=== PATIENT | female | born 1985 | race African-American/Black ===

== ENCOUNTER 2017-05-12 15:53 | Observation (INO) | payer MEDICAID ==
[~2017-05-12] VITALS: Ht 172.7 cm; Wt 104.8 kg
== END 2017-05-12 19:05 | disposition home or self-care (01) ==
LOC: L&D 15:53
PROVIDERS: ADMIT Obstetrics & Gynecology; ATTEND Obstetrics & Gynecology
DX: O42.013 Preterm premature rupture of membranes, onset of labor within 24 hours of rupture, third trimester (principal); Z3A.38 38 weeks gestation of pregnancy
CPT/HCPCS: 76815; 76818; 99281; G0378

== ENCOUNTER 2019-05-21 21:55 | Emergency (ER) | payer MEDICAID ==
[~2019-05-21] VITALS: Ht 172.7 cm; Wt 116.0 kg
[2019-05-21 22:13] VITALS: BP 159/88
== END 2019-05-22 | disposition left against medical advice (07) ==
LOC: ER 21:55
DX: Z53.21 Procedure and treatment not carried out due to patient leaving prior to being seen by health care provider (principal)

== ENCOUNTER 2019-06-19 09:36 | Emergency (ER) | payer MEDICAID ==
[~2019-06-19] VITALS: Ht 170.2 cm; Wt 104.0 kg
[2019-06-19 10:09] VITALS: BP 136/89
[2019-06-19] MEDS ORDERED: IBUPROFEN 600MG TABLET PO ONE (11:15)
[2019-06-19 12:02] LABS: CLARITY URINE CLEAR (CLEAR); COLOR URINE YELLOW (YELLOW); KETONES URINE NEGATIVE (NEGATIVE); LEUKOCYTE ESTERASE URINE NEGATIVE (NEGATIVE); NITRITE URINE NEGATIVE (NEGATIVE); OCCULT BLOOD URINE NEGATIVE (NEGATIVE); PH URINE 5.5 (4.5-8.0); PROTEIN URINE NEGATIVE (NEGATIVE); SPECIFIC GRAVITY URINE 1.019 (1.005-1.030); UROBILINOGEN URINE 0.2 E.U./dL (0.2-1.0)
[2019-06-19] MEDS ORDERED: MECLIZINE 25MG TABLET PO ONE (12:30)
== END 2019-06-19 13:24 | disposition home or self-care (01) ==
LOC: ER 09:36
DX: R51 Headache (principal); R30.0 Dysuria; R10.9 Unspecified abdominal pain; I10 Essential (primary) hypertension; Z86.59 Personal history of other mental and behavioral disorders
CPT/HCPCS: 81003; 81025; 99283

== ENCOUNTER 2019-07-20 13:11 | Emergency (ER) | payer MEDICAID, OTHER ==
[~2019-07-20] VITALS: Ht 172.7 cm; Wt 102.6 kg
[~2019-07-20 13:11] MED LIST: LIDOCAINE HCL/PF 1% 2ML VIAL ONE
[2019-07-20 15:13] LABS: CHLORIDE 108 mEq/L (98-107)
[2019-07-20 15:15] LABS: BASOPHILS % 0.4 % (0.0-2.0); EOSINOPHILS % 1.3 % (0.0-5.0); HEMATOCRIT. 39.8 % (36.0-48.0); HEMOGLOBIN. 13.9 g/dL (12.0-16.0); LYMPHOCYTES % 37.7 % (20.0-50.0); MEAN CORPUSCULAR HEMOGLOBIN 30.8 pg (28.0-32.0); MEAN CORPUSCULAR VOLUME 88.3 fL (81.0-99.0); MONOCYTES % 5.8 % (2.0-8.0); NEUTROPHILS % 54.8 % (40.0-76.0); PLATELET 241 x1000/uL (130-400); RED CELL DISTRIBUTION WIDTH 14.4 % (11.6-14.6)
[2019-07-20 15:18] LABS: ETHANOL BLOOD < 10 mg/dL
[2019-07-20 15:42] LABS: CLARITY URINE CLEAR (CLEAR); COLOR URINE YELLOW (YELLOW); KETONES URINE NEGATIVE (NEGATIVE); LEUKOCYTE ESTERASE URINE TRACE (NEGATIVE); NITRITE URINE NEGATIVE (NEGATIVE); OCCULT BLOOD URINE NEGATIVE (NEGATIVE); PROTEIN URINE NEGATIVE (NEGATIVE); SPECIFIC GRAVITY URINE 1.006 (1.005-1.030); UROBILINOGEN URINE 0.2 E.U./dL (0.2-1.0)
[2019-07-20] MEDS ORDERED: KETOROLAC 30MG/ML VIAL IV ONE (15:45)
[2019-07-20 15:47] LABS: BG BASE EXCESS -0.9 mmol/L (-2.0-2.0); BG CARBOXYHEMOGLOBIN 0.6 % (0.5-1.5); BG DEOXYHEMOGLOBIN 5.3 % (0.0-5.0); BG HCO3 ACT 24.1 mmol/L (22.0-26.0); BG METHEMOGLOBIN 0.2 % (0.0-1.5); BG OXYGEN SATURATION 94.7 % (92.0-98.5); BG OXYHEMOGLOBIN 93.9 % (94.0-97.0); BG PCO2 41.2 mmHg (35.0-45.0); BG PH 7.385 (7.350-7.450); BG PO2 75.1 mmHg (75.0-100.0); BG SAMPLE SITE RIGHT RADIAL; BG TOTAL HEMOGLOBIN 13.9 g/dL (12.0-18.0); BG VENT MODE ROOM AIR
[2019-07-20 16:07] LABS: *AMPHETAMINES SCREEN URINE NEGATIVE (NEGATIVE); *BARBITURATES SCREEN URINE NEGATIVE (NEGATIVE); *BENZODIAZEPINES SCREEN URINE NEGATIVE (NEGATIVE); *COCAINE SCREEN URINE NEGATIVE (NEGATIVE)
[2019-07-20 16:09] LABS: CANNABINOID URINE SCREEN NEGATIVE (NEGATIVE); METHADONE URINE SCREEN NEGATIVE (NEGATIVE); OPIATES URINE SCREEN NEGATIVE (NEGATIVE); PHENCYCLIDINE URINE SCREEN NEGATIVE (NEGATIVE)
[2019-07-20 17:01] VITALS: BP 120/78
== END 2019-07-20 17:45 | disposition home or self-care (01) ==
LOC: ER 13:11
DX: R53.1 Weakness (principal); I10 Essential (primary) hypertension; H55.00 Unspecified nystagmus
CPT/HCPCS: 36415; 36600; 70450; 80053; 80305; 80320; 81003; 81025; 82375; 82805; 82962; 84443; 85025; 93005; 96374; 99285; J1885; J3490; G0480

== ENCOUNTER 2019-07-27 11:01 | Emergency (ER) | payer MEDICAID ==
[~2019-07-27] VITALS: Ht 172.7 cm; Wt 100.0 kg
[2019-07-27 11:45] VITALS: BP 127/80
== END 2019-07-27 18:42 | disposition left against medical advice (07) ==
LOC: ER 11:01
DX: R42 Dizziness and giddiness (principal); Z53.21 Procedure and treatment not carried out due to patient leaving prior to being seen by health care provider

== ENCOUNTER 2019-08-15 17:31 | Emergency (ER) | payer MEDICAID ==
[~2019-08-15] VITALS: Ht 172.7 cm; Wt 103.0 kg
[2019-08-15 17:34] VITALS: BP 126/80
== END 2019-08-15 18:13 | disposition left against medical advice (07) ==
LOC: ER 17:31
DX: R07.89 Other chest pain (principal); Z53.21 Procedure and treatment not carried out due to patient leaving prior to being seen by health care provider

== ENCOUNTER 2019-08-17 11:21 | Emergency (ER) | payer MEDICAID ==
[~2019-08-17] VITALS: Ht 172.7 cm; Wt 103.5 kg
[2019-08-17 11:52] VITALS: BP 127/74
[2019-08-17] MEDS ORDERED: LORA-250 PO (11:52)
[2019-08-17] MEDS ORDERED: AMLO-78 PO (11:52)
[2019-08-17] MEDS ORDERED: MECL-159 PO (11:59)
== END 2019-08-17 14:04 | disposition home or self-care (01) ==
LOC: ER 11:21
DX: J02.9 Acute pharyngitis, unspecified (principal); J45.909 Unspecified asthma, uncomplicated; Z91.040 Latex allergy status
CPT/HCPCS: 87070; 87430; 99283

== ENCOUNTER 2019-08-20 23:11 | Emergency (ER) | payer MEDICAID ==
[~2019-08-20] VITALS: Ht 172.7 cm; Wt 104.0 kg
[~2019-08-20 23:11] MED LIST changes: +AMLO-78 PO; -LIDOCAINE HCL/PF 1% 2ML VIAL ONE; +LORA-250 PO; +MECL-159 PO
[2019-08-20 23:20] VITALS: BP 134/85
== END 2019-08-21 02:31 | disposition left against medical advice (07) ==
LOC: ER 23:11
DX: J02.9 Acute pharyngitis, unspecified (principal); R07.89 Other chest pain; I10 Essential (primary) hypertension; G51.0 Bell's palsy
CPT/HCPCS: 81025; 93005; 99284

== ENCOUNTER 2019-08-26 13:13 | Emergency (ER) | payer MEDICAID ==
[~2019-08-26] VITALS: Ht 172.7 cm; Wt 91.0 kg
[2019-08-26] MEDS ORDERED: KETOROLAC 30MG/ML VIAL IM ONE (16:00)
[2019-08-26 16:40] VITALS: BP 124/83
== END 2019-08-26 18:33 | disposition home or self-care (01) ==
LOC: ER 13:13
DX: R10.10 Upper abdominal pain, unspecified (principal); R11.0 Nausea; R59.0 Localized enlarged lymph nodes; J02.9 Acute pharyngitis, unspecified; I10 Essential (primary) hypertension; G51.0 Bell's palsy
CPT/HCPCS: 76641; 76700; 81025; 96372; 99285; J1885

== ENCOUNTER 2019-09-23 19:32 | Emergency (ER) | payer MEDICAID ==
[~2019-09-23] VITALS: Ht 170.2 cm; Wt 107.0 kg
[2019-09-23 21:31] VITALS: BP 135/78
== END 2019-09-23 21:37 | disposition home or self-care (01) ==
LOC: ER 19:32
DX: B34.9 Viral infection, unspecified (principal); F17.290 Nicotine dependence, other tobacco product, uncomplicated; I10 Essential (primary) hypertension; Z91.040 Latex allergy status; Z79.899 Other long term (current) drug therapy; Z20.828 Contact with and (suspected) exposure to other viral communicable diseases
CPT/HCPCS: 99282; 99283

== ENCOUNTER 2019-10-27 19:18 | Emergency (ER) | payer MEDICAID ==
[~2019-10-27] VITALS: Ht 170.2 cm; Wt 105.1 kg
[2019-10-27] MEDS ORDERED: SODIUM CHLORIDE 0.9% 1000ML BAG (SEPSIS BOLUS) IV ONE (21:00)
[2019-10-27 21:11] LABS: CHLORIDE 111 mEq/L (98-107); MEAN CORPUSCULAR HEMOGLOBIN 32.4 pg (28.0-32.0); MEAN PLATELET VOLUME 9.4 fl (7.4-10.4); PLATELET 257 x1000/uL (130-400); RED BLOOD CELL COUNT 4.31 mill/uL (4.2-5.4); RED CELL DISTRIBUTION WIDTH 12.6 % (11.6-14.6)
[2019-10-27] MEDS ORDERED: NITROGLYCERIN 0.4MG TABLET SL SL PRN (21:15)
[2019-10-27] MEDS ORDERED: ASPIRIN 81MG TABLET PO ONE (21:15)
[2019-10-27 21:16] LABS: HCG SCREEN NEGATIVE
[2019-10-27 21:20] LABS: D-DIMER 0.31 mg/L FEU (<0.50); INR 0.9; PARTIAL THROMBOPLASTIN TIME 24.7 sec (23.4-31.0); PROTHROMBIN TIME 10.3 sec (9.6-11.0)
[2019-10-27 21:55] LABS: PLATELET ESTIMATE NORMAL
[2019-10-27 21:59] LABS: CLARITY URINE CLOUDY (CLEAR); COLOR URINE RED (YELLOW); KETONES URINE NEGATIVE (NEGATIVE); LEUKOCYTE ESTERASE URINE 2+ (NEGATIVE); NITRITE URINE NEGATIVE (NEGATIVE); OCCULT BLOOD URINE 3+ (NEGATIVE); PH URINE 8.5 (4.5-8.0); PROTEIN URINE 1+ (NEGATIVE); SPECIFIC GRAVITY URINE 1.016 (1.005-1.030)
[2019-10-27] MEDS ORDERED: POTASSIUM CHLORIDE 20MEQ TABLET SR PO ONE (22:30)
[2019-10-27] MEDS ORDERED: CEFTRIAXONE 1 G PREMIX 50 ML IV ONE (23:00)
[2019-10-28 00:29] VITALS: BP 110/84
== END 2019-10-28 00:30 | disposition home or self-care (01) ==
LOC: ER 19:18
DX: R07.89 Other chest pain (principal); N39.0 Urinary tract infection, site not specified; R05 Cough; J02.9 Acute pharyngitis, unspecified; I10 Essential (primary) hypertension; G51.0 Bell's palsy
CPT/HCPCS: 36415; 71045; 80053; 81003; 81025; 82962; 83605; 83880; 84145; 84484; 84703; 85025; 85379; 85610; 85730; 87070; 87086; 87430; 93005; 99285; J7030; Z7610

== ENCOUNTER 2020-09-03 01:38 | Emergency (ER) | payer MEDICAID, OTHER ==
[~2020-09-03] VITALS: Ht 167.6 cm; Wt 81.0 kg
[2020-09-03 01:40] VITALS: BP 122/59
[2020-09-03] MEDS ORDERED: MECLIZINE 25MG TABLET PO ONE (02:00)
[2020-09-03] MEDS ORDERED: SODIUM CHLORIDE 0.9% 1,000 ML IV ONE (02:00)
== END 2020-09-03 02:45 | disposition left against medical advice (07) ==
LOC: ER 01:38
DX: R42 Dizziness and giddiness (principal); F41.0 Panic disorder [episodic paroxysmal anxiety]; Z53.29 Procedure and treatment not carried out because of patient's decision for other reasons; F41.9 Anxiety disorder, unspecified; I10 Essential (primary) hypertension; Z91.040 Latex allergy status
CPT/HCPCS: 99283; J7030; J8597

== ENCOUNTER 2020-12-29 15:12 | Emergency (ER) | payer MEDICAID, OTHER ==
[~2020-12-29] VITALS: Ht 172.7 cm; Wt 109.0 kg
[2020-12-29 15:15] VITALS: BP 127/68
== END 2020-12-29 16:53 | disposition home or self-care (01) ==
LOC: ER 15:12
DX: R07.89 Other chest pain (principal)
CPT/HCPCS: 93005; 99281

== ENCOUNTER 2021-02-05 21:17 | Emergency (ER) | payer MEDICAID, OTHER ==
[~2021-02-05] VITALS: Ht 167.6 cm; Wt 91.0 kg
[2021-02-05 21:21] VITALS: BP 140/86
== END 2021-02-06 00:17 | disposition left against medical advice (07) ==
LOC: ER 21:17
DX: R10.9 Unspecified abdominal pain (principal); Z53.21 Procedure and treatment not carried out due to patient leaving prior to being seen by health care provider

== ENCOUNTER 2021-11-24 05:23 | Emergency (ER) | payer OTHER, MEDICAID ==
[~2021-11-24] VITALS: Ht 172.7 cm; Wt 101.9 kg
[~2021-11-24 05:23] MED LIST changes: +AMLO-139 PO; -AMLO-78 PO
[2021-11-24 05:41] VITALS: BP 121/82
[2021-11-24] MEDS ORDERED: SODIUM CHLORIDE 0.9% 1,000 ML IV ONE (08:15)
== END 2021-11-24 09:10 | disposition left against medical advice (07) ==
LOC: ER 05:23
DX: R10.9 Unspecified abdominal pain (principal); Z53.21 Procedure and treatment not carried out due to patient leaving prior to being seen by health care provider
CPT/HCPCS: 81025; 93005; J7030; 99283

== ENCOUNTER 2022-07-27 23:51 | Emergency (ER) | payer MEDICAID, OTHER ==
[~2022-07-27] VITALS: Ht 172.7 cm; Wt 94.0 kg
[2022-07-28 00:28] VITALS: BP 101/63
== END 2022-07-28 05:47 | disposition left against medical advice (07) ==
LOC: ER 23:51
DX: Z53.21 Procedure and treatment not carried out due to patient leaving prior to being seen by health care provider (principal)
CPT/HCPCS: 99281

== ENCOUNTER 2022-09-08 16:33 | Emergency (ER) | payer MEDICAID ==
[~2022-09-08] VITALS: Ht 165.1 cm; Wt 80.0 kg
[2022-09-08 17:12] LABS: BASOPHILS % 0.3 % (0.0-2.0); EOSINOPHILS % 1.2 % (0.0-5.0); HEMATOCRIT. 38.5 % (36.0-48.0); HEMOGLOBIN. 13.5 g/dL (12.0-16.0); LYMPHOCYTES % 26.3 % (20.0-50.0); MEAN CORPUSCULAR HEMOGLOBIN 32.7 pg (28.0-32.0); MEAN CORPUSCULAR VOLUME 92.9 fL (81.0-99.0); MEAN PLATELET VOLUME 8.9 fl (7.4-10.4); MONOCYTES % 8.3 % (2.0-8.0); NEUTROPHILS % 63.9 % (40.0-76.0); PLATELET 243 x1000/uL (130-400); RED BLOOD CELL COUNT 4.14 mill/uL (4.2-5.4); RED CELL DISTRIBUTION WIDTH 12.6 % (11.6-14.6)
[2022-09-08 17:25] LABS: CHLORIDE 105 mEq/L (98-107)
[2022-09-08] MEDS ORDERED: HYDR12.54 PO (18:03)
[2022-09-08] MEDS ORDERED: OXYM30SP26 BOTHNSTRLS (18:03)
[2022-09-08] MEDS ORDERED: POTASSIUM CHLORIDE 20MEQ TABLET SR PO NR (18:09)
[2022-09-08 18:11] LABS: CLARITY URINE CLEAR (CLEAR); COLOR URINE YELLOW (YELLOW); KETONES URINE NEGATIVE (NEGATIVE); LEUKOCYTE ESTERASE URINE NEGATIVE (NEGATIVE); NITRITE URINE NEGATIVE (NEGATIVE); OCCULT BLOOD URINE NEGATIVE (NEGATIVE); PH URINE 7.5 (4.5-8.0); PROTEIN URINE NEGATIVE (NEGATIVE); SPECIFIC GRAVITY URINE 1.014 (1.005-1.030)
[2022-09-08 18:45] VITALS: BP 132/89
== END 2022-09-08 19:11 | disposition home or self-care (01) ==
LOC: ER 16:33
DX: M25.512 Pain in left shoulder (principal); F41.9 Anxiety disorder, unspecified; R42 Dizziness and giddiness; I10 Essential (primary) hypertension; Z88.6 Allergy status to analgesic agent; Z91.040 Latex allergy status; Y04.2XXA Assault by strike against or bumped into by another person, initial encounter; Y93.89 Activity, other specified; Y92.89 Other specified places as the place of occurrence of the external cause; Y99.8 Other external cause status
CPT/HCPCS: 36415; 73030; 80053; 81003; 81025; 85025; 93005; 99285

== ENCOUNTER 2022-09-12 16:42 | Emergency (ER) | payer MEDICAID ==
[~2022-09-12] VITALS: Ht 170.2 cm; Wt 91.8 kg
[~2022-09-12 16:42] MED LIST changes: +HYDR12.54 PO; +OXYM30SP26 BOTHNSTRLS
[2022-09-12 16:52] VITALS: BP 136/86
[2022-09-12 17:26] LABS: BASOPHILS % 0.5 % (0.0-2.0); EOSINOPHILS % 1.3 % (0.0-5.0); HEMATOCRIT. 41.6 % (36.0-48.0); HEMOGLOBIN. 14.6 g/dL (12.0-16.0); LYMPHOCYTES % 29.2 % (20.0-50.0); MEAN CORPUSCULAR HEMOGLOBIN 32.7 pg (28.0-32.0); MEAN CORPUSCULAR VOLUME 93.1 fL (81.0-99.0); MEAN PLATELET VOLUME 8.9 fl (7.4-10.4); MONOCYTES % 7.5 % (2.0-8.0); NEUTROPHILS % 61.5 % (40.0-76.0); PLATELET 294 x1000/uL (130-400); RED BLOOD CELL COUNT 4.47 mill/uL (4.2-5.4); RED CELL DISTRIBUTION WIDTH 12.4 % (11.6-14.6)
[2022-09-12 17:51] LABS: CHLORIDE 104 mEq/L (98-107)
== END 2022-09-13 00:31 | disposition left against medical advice (07) ==
LOC: ER 16:42
DX: Z53.21 Procedure and treatment not carried out due to patient leaving prior to being seen by health care provider (principal)
CPT/HCPCS: 36415; 80053; 85025; 99281

== ENCOUNTER 2022-09-17 13:41 | Emergency (ER) | payer MEDICAID ==
[~2022-09-17] VITALS: Ht 170.2 cm; Wt 91.0 kg
[2022-09-17 13:52] VITALS: BP 120/71
[2022-09-17 15:32] LABS: BASOPHILS % 0.4 % (0.0-2.0); EOSINOPHILS % 0.5 % (0.0-5.0); HEMATOCRIT. 40.3 % (36.0-48.0); HEMOGLOBIN. 13.9 g/dL (12.0-16.0); LYMPHOCYTES % 31.6 % (20.0-50.0); MEAN CORPUSCULAR HEMOGLOBIN 32.2 pg (28.0-32.0); MEAN CORPUSCULAR VOLUME 93.2 fL (81.0-99.0); MEAN PLATELET VOLUME 9.1 fl (7.4-10.4); MONOCYTES % 6.4 % (2.0-8.0); NEUTROPHILS % 61.1 % (40.0-76.0); PLATELET 263 x1000/uL (130-400); RED BLOOD CELL COUNT 4.32 mill/uL (4.2-5.4); RED CELL DISTRIBUTION WIDTH 12.4 % (11.6-14.6)
[2022-09-17 15:47] LABS: CHLORIDE 106 mEq/L (98-107)
[2022-09-17 15:51] LABS: HCG SCREEN NEGATIVE
== END 2022-09-17 22:31 | disposition left against medical advice (07) ==
LOC: ER 13:41
DX: R10.30 Lower abdominal pain, unspecified (principal); Z53.21 Procedure and treatment not carried out due to patient leaving prior to being seen by health care provider
CPT/HCPCS: 36415; 71045; 80053; 84703; 85025; 99281